=== PATIENT | male | born 1960 | race Caucasian/White ===

== ENCOUNTER 2021-05-01 00:19 | Day surgery (SDC) | payer OTHER, SELFPAY ==
[2021-04-17 13:35] VITALS: BMI 26.4
--- NOTE | 2021-04-30 09:47 | P.PNAN_ITS ---
Anes - Initial Pre Proc Eval Procedure: Operation Date: 05/01/21 07:30 Proposed Procedures p Screening Colonoscopy - Anil Ponce MD Date/Time: 04/30/21 09:47 Surgeon: Anil Ponce MD Pre Op Diagnosis: hx of colon polyps Patient Data Age: 61 Gender: M Height: 1.85 m Weight: 90.9 kg Allergies Allergy/AdvReac Type Severity Reaction Status Date / Time No Known Allergies Allergy Verified 05/01/21 06:20 Home Medications Medication Instructions Recorded Confirmed Type aspirin 81 mg tablet,delayed 81 mg PO DAILY #30 tablet 09/29/19 04/17/21 Rx release Patient hx anesthesia problems: none Family hx anesthesia problems: none Results Review: All pre-operative results and documents have been reviewed as part of the pre-operative evaluation. [facility] Past Medical History Medical History (Updated 04/30/21 @ 11:34 by Anil Ponce MD) Androgen deficiency Vitamin D deficiency, unspecified Wellness examination Family History Family History (Updated 03/23/14 @ 07:13 by DOCTOR UNKNOWN) Father Hypertension Social History Social History Smoking status: Never smoker Alcohol intake: former Substance use: never Substance use type: does not use Living arrangements: with family Spiritual care concerns: No Anes - Eval Final PreProcedure Day of Procedure 04/30/21 09:47 Patient weight: overweight Heart: regular rate and rhythm Lungs: clear to auscultation and normal air movement Airway: Mallampati scale class II Neurological: alert and oriented Last oral intake: >/= 8 hours ASA classification: II Emergent: no Anesthetic plan: proceed Anesthesia type and monitoring: general GIVS and standard monitoring Results Review: All pre-operative results and documents have been reviewed as part of the pre-operative evaluation. Informed Consent: The patient's anesthetic plan and its attendant risks and benefits were discussed with the patient/family/POA. Questions were solicited and answers provided to the satisfaction of the patient/family/POA.
--- NOTE | 2021-04-30 11:33 | PM.HPGS ---
History of Present Illness History of Present Illness Consent: Risks, benefits, and alternatives have been discussed and questions answered. Patient agrees to proceed with procedure. Chief complaint: hx of colon polyps Narrative: Anthony Whalen is a 61 year old male here for colon cancer screening. He had a polyp removed 8 years ago Review of Systems Review of Systems: All systems reviewed & are unremarkable except as noted in HPI and below PMFSH Past Medical History Medical History Androgen deficiency Vitamin D deficiency, unspecified Wellness examination Family History Family History Father Hypertension Social History Social History Smoking status: Never smoker Alcohol intake: former Substance use: never Substance use type: does not use Living arrangements: with family Spiritual care concerns: No Meds Home Medications and Allergies Home Medications Medication Instructions Recorded Confirmed Type aspirin 81 mg tablet,delayed 81 mg PO DAILY #30 tablet 09/29/19 04/17/21 Rx release Allergies Allergy/AdvReac Type Severity Reaction Status Date / Time No Known Allergies Allergy Verified 05/01/21 06:20 Exam Const: General: alert Orientation/consciousness: patient oriented x3 Resp: Auscultation: clear to auscultation bilaterally Cardio: Rhythm: regular rhythm GI: GI Palp: Yes Soft to palpation and No Tenderness to palpation present (GI) Neuro: General: patient oriented x3 Assessment and Plan Assessment and plan (1) Colon cancer screening: Code(s): Z12.11 - Encounter for screening for malignant neoplasm of colon Status: Acute Assessment and Plan: Colonoscopy with possible biopsy or polypectomy or cautery or injection of substances.
[2021-05-01 06:22] VITALS: BP 131/87; PULSE 65; RESP 18; TEMP 36.2; O2SAT 100
[2021-05-01] MEDS: LACTATED RINGERS 1,000 ML 150 ML IV CONT (06:35)
[2021-05-01 07:51] VITALS: BP 108/75; PULSE 51; RESP 20; O2SAT 100
[2021-05-01 08:01] VITALS: BP 109/78; PULSE 59; RESP 20; O2SAT 100
[2021-05-01 08:11] VITALS: BP 129/87; PULSE 60; RESP 20; O2SAT 100
== END 2021-05-01 08:25 | disposition home or self-care (01) ==
PROVIDERS: PCP Family Medicine; Visit Provider Internal Medicine Gastroenterology
PROC: 0DJD8ZZ Inspection of Lower Intestinal Tract, Via Natural or Artificial Opening Endoscopic (ICD-10-PCS; CPT 45378; principal; 2021-05-01 07:30)
DX: Z12.11 Encounter for screening for malignant neoplasm of colon (principal); D12.0 Benign neoplasm of cecum; Z79.82 Long term (current) use of aspirin
CPT/HCPCS: 45381; 45385; 88305; J2704; J7120

== ENCOUNTER 2024-07-13 06:11 | Day surgery (SDC) | payer OTHER, SELFPAY ==
[2024-05-24 10:08] VITALS: BMI 26.7
[2024-06-20 12:20] VITALS: BMI 23.8
--- NOTE | 2024-07-12 15:51 | P.PNAN_ITS ---
Anes - Initial Pre Proc Eval Procedure: Operation Date: 07/13/24 08:00 Proposed Procedures p Diagnostic Colonoscopy - Willis Tuttle MD Date/Time: 07/12/24 15:51 Surgeon: Willis Tuttle MD Pre Op Diagnosis: Personal HX of Colonic Polyps Patient Data Age: 64 Gender: M Height: 1.85 m Weight: 82 kg Allergies Allergy/AdvReac Type Severity Reaction Status Date / Time No Known Allergies Allergy Verified 07/13/24 06:47 Home Medications ?Medication ?Instructions ?Recorded ?Confirmed ?Type cholecalciferol (vitamin D3) 125 125 mcg PO DAILY 06/20/24 07/13/24 History mcg (5,000 unit) tablet (Vitamin D3) zdqavgmu-fbwlhfpy-xewbs acid 400 1 tablet PO DAILY 06/20/24 07/13/24 History mcg-vit K 20 mcg-lycop 300 mcg tablet omega-3 fatty acids-vitamin E 1 cap PO DAILY 06/20/24 07/13/24 History 1,000 mg capsule Patient hx anesthesia problems: none Family hx anesthesia problems: none Results Review: All pre-operative results and documents have been reviewed as part of the pre- operative evaluation. [facility] Past Medical History Medical History (Updated 07/13/24 @ 06:47 by Murtaza Murphy DO) Mixed hyperlipidemia Vitamin D deficiency, unspecified Androgen deficiency Wellness examination Family History Family History Father Hypertension Social History Social History Smoking status: Never smoker Alcohol intake: former Substance use: never Substance use type: does not use Living arrangements: with family Occupation/Education: occupation Gender identity (if verbalized by the patient): Male Sexual Orientation (if Verbalized by the Patient): Straight or Heterosexual Spiritual care concerns: No Anes - Eval Final PreProcedure Day of Procedure 07/12/24 15:51 Patient weight: normal Heart: regular rate and rhythm Lungs: clear to auscultation and normal air movement Airway: Mallampati scale class II Neurological: alert and oriented Last oral intake: >/= 8 hours ASA classification: II Emergent: no Anesthetic plan: proceed Anesthesia type and monitoring: general GIVS and standard monitoring Results Review: All pre-operative results and documents have been reviewed as part of the pre- operative evaluation. Informed Consent: The patient's anesthetic plan and its attendant risks and benefits were discussed with the patient/family/POA. Questions were solicited and answers provided to the satisfaction of the patient/family/POA.
[2024-07-13 06:53] VITALS: BP 115/83; PULSE 64; RESP 16; TEMP 36.9; O2SAT 98
[2024-07-13] MEDS: LACTATED RINGERS 1,000 ML 150 ML IV CONT (07:06)
--- NOTE | 2024-07-13 07:25 | PM.HPGS ---
History of Present Illness History of Present Illness Consent: Risks, benefits, and alternatives have been discussed and questions answered. Patient agrees to proceed with procedure. Chief complaint: Personal HX of Colonic Polyps Narrative: Anthony Whalen is a 64 year old male presents for colonoscopy. Patient's current weight appetite and bowel movements are normal. Patient denies abdominal pain. Has had no bleeding. Family history his colonoscopy in 2020 revealed a large cecal polyp. Patient's family history is significant his mother had colon polyps. Review of Systems Review of Systems: All systems reviewed & are unremarkable except as noted in HPI and below PMFSH Past Medical History Medical History (Updated 07/13/24 @ 07:27 by Willis Tuttle MD) Mixed hyperlipidemia Vitamin D deficiency, unspecified Androgen deficiency Wellness examination Family History Family History Father Hypertension Social History Social History Smoking status: Never smoker Alcohol intake: former Substance use: never Substance use type: does not use Living arrangements: with family Occupation/Education: occupation Gender identity (if verbalized by the patient): Male Sexual Orientation (if Verbalized by the Patient): Straight or Heterosexual Spiritual care concerns: No Meds Home Medications and Allergies Home Medications ?Medication ?Instructions ?Recorded ?Confirmed ?Type cholecalciferol (vitamin D3) 125 125 mcg PO DAILY 06/20/24 07/13/24 History mcg (5,000 unit) tablet (Vitamin D3) pexwzkxv-eckwkqbj-vzfax acid 400 1 tablet PO DAILY 06/20/24 07/13/24 History mcg-vit K 20 mcg-lycop 300 mcg tablet omega-3 fatty acids-vitamin E 1 cap PO DAILY 06/20/24 07/13/24 History 1,000 mg capsule Allergies Allergy/AdvReac Type Severity Reaction Status Date / Time No Known Allergies Allergy Verified 07/13/24 06:47 Vital Signs Vital Signs - 24 hr 07/13/24 06:53 Temperature 98.5 F Pulse Rate 64 Respiratory Rate 16 Blood Pressure 115/83 Pulse Oximetry 98 Oxygen Delivery Room Air Exam Narrative: Physical exam reveals patient to be alert. Vital signs stable. HEENT exam is unremarkable. Patient is anicteric. Lungs are clear to auscultation and to percussion. Heart is without murmur or extra sounds. Abdomen bowel sounds are present soft nontender with no organomegaly. Digital external rectal exam normal. Assessment and Plan Assessment and plan (1) History of colon polyps: Code(s): Z86.0100 - Personal history of colon polyps, unspecified Status: Acute Assessment and Plan: Patient has a history of large colon polyp removed in 2020. Plan for surveillance colonoscopy at this time and at intervals in the future. Further recommendations may be given after endoscopy.
[2024-07-13 08:30] VITALS: BP 92/72; PULSE 55; RESP 14; O2SAT 98
[2024-07-13 08:40] VITALS: BP 104/81; PULSE 57; RESP 16; O2SAT 99
[2024-07-13 08:50] VITALS: BP 119/79; PULSE 54; RESP 16; O2SAT 100
--- NOTE | 2024-07-13 09:10 | WPDANESPN ---
Anes - Prog Note Post-Op Date/Time: 07/13/24 09:10 Cardiovascular status: normal Respiratory status: normal Airway patency: baseline Mental status: baseline Post-Op hydration status: normal Vital Signs: Last Vital Signs Temp 36.9 C 07/13/24 06:53 Pulse 54 L 07/13/24 08:50 Resp 16 07/13/24 08:50 BP 119/79 07/13/24 08:50 Pulse Ox 100 07/13/24 08:50 O2 Del Method Room Air 07/13/24 08:50 Pain Score (VAS): 0 I/O: Intake & Output 07/12/24 07/13/24 07/13/24 23:59 07:59 15:59 Intake Total 500 Balance 500 Post-procedural complaints: none Patient Feedback: Patient satisfied with anesthetic care. Other Findings: Patient vital signs back to baseline. Patient denies nausea and vomiting. Patient's pain under control. Patient OK for discharge.
== END 2024-07-13 09:06 | disposition home or self-care (01) ==
PROVIDERS: PCP Family Medicine; Visit Provider Internal Medicine Gastroenterology
PROC: 0DJD8ZZ Inspection of Lower Intestinal Tract, Via Natural or Artificial Opening Endoscopic (ICD-10-PCS; CPT 45378; principal; 2024-07-13 08:00)
DX: Z86.0100 Personal history of colon polyps, unspecified (principal); D12.2 Benign neoplasm of ascending colon; D12.8 Benign neoplasm of rectum; K64.8 Other hemorrhoids
CPT/HCPCS: 45385

== ENCOUNTER 2024-07-13 07:24 | Outpatient (NON) | payer OTHER, SELFPAY | END 2024-07-13 07:25 | disposition home or self-care (01) | LOC: ANHLAB 07-14 07:25 | PROVIDERS: PCP Family Medicine; Visit Provider Internal Medicine Gastroenterology | DX: K63.5 Polyp of colon (principal) | CPT/HCPCS: 88305 ==